=== PATIENT | female | born 2000 | race Caucasian/White ===

== ENCOUNTER 2024-10-22 15:23 | Inpatient (IN) | payer SELFPAY ==
[2024-10-22] VITALS (7 sets, daily range): BP systolic 111–133; BP diastolic 77–92; PULSE 68–106; TEMP 36.8–38.3; O2SAT 95–97; BMI 35.5; BMI 36.6
[2024-10-22 15:55] LABS: Hematocrit 41.5 % (36.0-48.0); Mean Corpuscular HGB Conc 33.7 g/dL (29.9-35.2); Mean Corpuscular Volume 89.1 fL (81.0-99.0); Mean Platelet Volume 10.1 fL (9.5-13.5); Platelet Count 297 10^3/uL (150-450); Red Blood Count 4.66 10^6/uL (4.20-5.40); Red Cell Distribution Width 12.2 % (11.0-15.0)
[2024-10-22 16:01] LABS: White Blood Count 32.5 10^3/uL (4.0-11.0)
[2024-10-22 16:06] LABS: Anion Gap 14.6; BUN Creatinine Ratio 12.7; Calcium 9.2 mg/dL (8.5-10.1); Chloride 103 mmol/L (98-107); Estimated GFR (African America >60 (>=60 mL/min/1.73m^2); Estimated GFR (Non-African Ame >60 (>=60 mL/min/1.73m^2); Glucose 106 mg/dL (74-106); Potassium 3.6 mmol/L (3.5-5.1); Sodium 138 mmol/L (136-145)
[2024-10-22 16:07] LABS: HCG Qualitative NEGATIVE (NEGATIVE); Internal Control Within Normal Limits
--- NOTE | 2024-10-22 16:07 | ED.GENADUL1 ---
HPI HPI - General Adult General Chief complaint: Skin/Abscess/Foreign Body Stated complaint: CYST LOWER EXTREMITY Time Seen by Provider: 10/22/24 15:24 Source: patient Mode of arrival: walk-in Limitations: no limitations History of Present Illness HPI narrative: 24-year-old female presents for swelling to her left upper inner thigh associated with erythema. There is been no injury or drainage. She has been feeling rundown and and somewhat nauseous. No fever vomiting or drainage. She has never had anything like this before. Related Data Home Medications ?Medication ?Instructions ?Recorded ?Confirmed sertraline 25 mg tablet (Zoloft) 25 mg PO DAILY 10/22/24 10/22/24 Allergies Allergy/AdvReac Type Severity Reaction Status Date / Time No Known Drug Allergies Allergy Verified 10/22/24 15:28 Opioid HPI Opioid Management Most Recent Opioid Data: Last Pain Scale 7 10/22/24 15:36 10/22/24 Review of Systems ROS Narrative A ten point review of systems is negative except as noted above. Exam Narrative Exam Narrative: Nurses note and vital signs reviewed and patient is not hypoxic. General: The patient appears well and in no apparent distress. Patient is resting comfortably on cart. Skin: Warm, dry, no pallor noted. There is an area of erythema and tenderness and some induration present on the left inner upper thigh. It does not go to the labia majora but starts just lateral to it. It is 16 x 17 cm in size. There is no open area or drainage. Head: Normocephalic, atraumatic Eye: Normal conjunctiva, no drainage Ears, Nose, Mouth, and Throat: oral mucosa is moist. Nares patent. Cardiovascular: Regular Rate and Rhythm Respiratory: Patient is in no distress, no accessory muscle use, lungs are clear to auscultation, no wheezing, rales or rhonchi Back: non-tender GI: Soft and nontender Musculoskeletal: The patient has no evidence of calf tenderness, no pitting edema, symmetrical pulses noted bilaterally Neurological: A&O, normal speech Psychiatric: Cooperative Constitutional Vital Signs, click to edit/add: Last Vital Signs Temp 99.0 F 10/22/24 15:29 Pulse 104 H 10/22/24 15:29 Resp 18 10/22/24 15:29 BP 133/92 H 10/22/24 15:29 Pulse Ox 96 10/22/24 15:29 O2 Del Method Room Air 10/22/24 15:29 Course Vital Signs Vital signs: Vital Signs Temperature 99.0 F 10/22/24 15:29 Pulse Rate 104 H 10/22/24 15:29 Respiratory Rate 18 10/22/24 15:29 Blood Pressure 133/92 H 10/22/24 15:29 Pulse Oximetry 96 10/22/24 15:29 Oxygen Delivery Method Room Air 10/22/24 15:29 Temperature 99.0 F 10/22/24 15:29 Pulse Rate 104 H 10/22/24 15:29 Respiratory Rate 18 10/22/24 15:29 Blood Pressure 133/92 H 10/22/24 15:29 Pulse Oximetry 96 10/22/24 15:29 Oxygen Delivery Method Room Air 10/22/24 15:29 Medical Decision Making MDM Narrative Medical decision making narrative: The patient has cellulitis without an abscess on CAT scan and her WBC is significantly elevated. She is being admitted for IV antibiotic, vancomycin was started. Treatment diagnosis and disposition were discussed with the patient. Differential Diagnosis Differential Diagnosis: Cellulitis, abscess Lab Data Lab results reviewed: Yes I reviewed the patient's lab results Labs: Lab Results 10/22/24 Range/Units 15:43 WBC 32.5 H* (4.0-11.0) 10^3/uL RBC 4.66 (4.20-5.40) 10^6/uL Hgb 14.0 (12.0-16.0) g/dL Hct 41.5 (36.0-48.0) % MCV 89.1 (81.0-99.0) fL MCH 30.0 (26.7-34.0) pg MCHC 33.7 (29.9-35.2) g/dL RDW 12.2 (11.0-15.0) % Plt Count 297 (150-450) 10^3/uL MPV 10.1 (9.5-13.5) fL Seg Neuts % (Manual) 79.0 H (43.0-75.0) Band Neutrophils % 2.0 (0-5) % Lymphocytes % (Manual) 7.0 L (20.5-60.0) % Monocytes % (Manual) 12.0 (1.7-12.0) % Eosinophils % (Manual) 0.0 L (0.9-7.0) % Basophils % (Manual) 0.0 L (0.2-2.0) % Neutrophils # (Manual) 25.67 H (1.4-6.5) 10^3/uL Band Neutrophils # 0.7 H (0.0-0.3) 10^3/uL Lymphocytes # (Manual) 2.27 (1.20-3.80) 10^3/uL Monocytes # (Manual) 3.90 H (0.30-0.80) 10^3/uL Eosinophils # (Manual) 0.00 (0.00-0.70) 10^3/uL Basophils # (Manual) 0.00 (0.00-0.10) 10^3/uL Sodium 138 (136-145) mmol/L Potassium 3.6 (3.5-5.1) mmol/L Chloride 103 (98-107) mmol/L Carbon Dioxide 24.0 (21.0-32.0) mmol/L Anion Gap 14.6 BUN 10.0 (7.0-18.0) mg/dL Creatinine 0.79 (0.55-1.02) mg/dL Est GFR ( Amer) >60 (>=60 mL/min/1.73m^2) Est GFR (Non-Af Amer) >60 (>=60 mL/min/1.73m^2) BUN/Creatinine Ratio 12.7 Glucose 106 (74-106) mg/dL Calcium 9.2 (8.5-10.1) mg/dL Serum HCG, Qual Negative (NEGATIVE) Imaging Data CT scan - abdomen: Radiologist's impression: ITS Impressions Pelvis CT 10/22/24 16:20 IMPRESSION: Subcutaneous fat stranding is seen about the medial aspect of the left upper thigh region, suggestive of local infectious/inflammatory process. No discrete abnormal fluid collection is seen. Prominent low density is seen in the endometrium which may be related to patient's menstrual cycle. Please correlate clinically. 2 cm low density seen in the left pelvic region, which represent left ovarian cyst. Small free fluid is seen in the posterior cul-de-sac, which may be physiologic. Electronically authenticated by: GEOVANY NAJERA Date: 10/22/2024 17:12 Discharge Plan Discharge Chief Complaint: Skin/Abscess/Foreign Body Clinical Impression: Cellulitis Patient Disposition: Admitted As Inpatient Time of Disposition Decision: 17:29 Condition: Good Prescriptions / Home Meds: No Action sertraline [Zoloft] 25 mg tablet 25 mg PO DAILY Print Language: Faroese Referrals: Physician,Non-Staff, MD [Primary Care Provider] - 1 week
[2024-10-22 16:16] LABS: Band Neutrophils Absolute 0.7 10^3/uL (0.0-0.3); Lymphocytes Absolute Manual 2.27 10^3/uL (1.20-3.80); Segmented Neut Absolute Manual 25.67 10^3/uL (1.4-6.5)
--- NOTE | 2024-10-22 16:20 | CT_ITS ---
The [address] [address] Patient Name: JOSE ANTONIO DANIELLE MRN: [id number] date: 2000 Sex: F Assigned Patient Location: ER Current Patient Location: ED.MAIN Accession/Order Number: [id number] Exam Date: 10/22/2024 16:11 Report Date: 10/22/2024 17:12 At the request of: KETAON RODRIGUEZ Procedure: CT pelvis w con EXAM: CT pelvis w con HISTORY: R/o abscess, erythema on the upper inner thigh COMPARISON: None. TECHNIQUE: Multiple axial images of the pelvis are obtained following IV contrast administration. FINDINGS: Subcutaneous fat stranding is seen about the medial aspect of the left upper thigh region, suggestive of local infectious/inflammatory process. No discrete abnormal fluid collection is seen. The urinary bladder appears unremarkable. Prominent low density is seen in the endometrium which may be related to patient's menstrual cycle. Please correlate clinically. 2 cm low density seen in the left pelvic region, which represent left ovarian cyst. Small free fluid is seen in the posterior cul-de-sac, which may be physiologic. The osseous structures appear unremarkable. No acute fracture or malalignment of the osseous structures is seen. CT/CT pelvis w con IMPRESSION: Subcutaneous fat stranding is seen about the medial aspect of the left upper thigh region, suggestive of local infectious/inflammatory process. No discrete abnormal fluid collection is seen. Prominent low density is seen in the endometrium which may be related to patient's menstrual cycle. Please correlate clinically. 2 cm low density seen in the left pelvic region, which represent left ovarian cyst. Small free fluid is seen in the posterior cul-de-sac, which may be physiologic. Electronically authenticated by: GEOVANY NAJERA Date: 10/22/2024 17:12
[2024-10-22] MEDS: VANCOMYCIN HCL 2,000 MG in 0.9 % SODIUM CHLORIDE 500 ML 250 MG IV (17:03)
--- NOTE | 2024-10-22 17:50 | P.HP_ITS ---
HPI H&P: HPI History of Present Illness Chief complaint: CYST LOWER EXTREMITY Narrative: Patient presented to the hospital with at least a 2-day history of left inner thigh erythema, pain is been spreading after starting off with a smaller area. In the ER found to have significant cellulitis, CT scan not consistent with abscess After discussion with the patient, she has a history of sepsis requiring long stay hospitalization secondary to pyelonephritis. Currently she is having carito sea vomiting headache chills. Opioid HPI Opioid Management Most Recent Pain and Opioid Data: Last Pain Scale 7 10/22/24 15:36 10/22/24 Review of Systems ROS Status of ROS 10 or more systems reviewed and unremark able except as noted in history and below Meds Home Medications and Allergies Home Medications ?Medication ?Instructions ?Recorded ?Confirmed ?Type sertraline 25 mg tablet (Zoloft) 25 mg PO DAILY 10/22/24 10/22/24 History Allergies Allergy/AdvReac Type Severity Reaction Status Date / Time No Known Drug Allergies Allergy Verified 10/22/24 15:28 Exam Constitutional Vital Signs, click to edit/add: Last Vital Signs Temp 99.0 F 10/22/24 15:29 Pulse 104 H 10/22/24 15:29 Resp 18 10/22/24 15:29 BP 133/92 H 10/22/24 15:29 Pulse Ox 96 10/22/24 15:29 O2 Del Method Room Air 10/22/24 15:29 Documenting provider has reviewed patient's vital signs: yes Common normals: no apparent distress Chest Common normals: inspection of chest normal Respiratory Common normals: normal respiratory effort and no retractions Cardio Common normals: regular rate, regular rhythm and no murmurs GI Common normals: Normal to inspection, nondistended, normoactive bowel sounds present (Obese), soft to palpation and non-tender Extremity Common normals: abnormal to inspection (Left inner thigh with a large area of erythema with induration, calor dolor) Results Labs Labs: Short CBC 10/22/24 Range/Units 15:43 WBC 32.5 H* (4.0-11.0) 10^3/uL Hgb 14.0 (12.0-16.0) g/dL Hct 41.5 (36.0-48.0) % Plt Count 297 (150-450) 10^3/uL BMP 10/22/24 15:43 Sodium 138 Potassium 3.6 Chloride 103 Carbon Dioxide 24.0 BUN 10.0 Creatinine 0.79 Glucose 106 Calcium 9.2 Assessment and Plan Assessment and Plan (1) Cellulitis: Plan Admission findings: Tachycardia, leukocytosis, nausea, vomiting, chills, headache all consistent with possible sepsis, lactate is pending, sepsis due to cellulitis left inner thigh. Patient has a history of sepsis in the past. Cellulitis with possible sepsis-IV antibiotics, Toradol for pain control, marked the area to ensure no spread outside the line of demarcation Depression-continue with home medications Mild dehydration secondary to the above-IV fluids Admission status: Patient with tachycardia and significant leukocytosis with likely sepsis, not all labs are back, history of sepsis in the past, medically necessary treatment will span 2 midnights. Inpatient status.
[2024-10-22 18:04] LABS: C Reactive Protein 14.39 mg/dL (<=0.50)
[2024-10-22 18:11] LABS: Lactate/Lactic Acid 1.3 mmol/L (0.4-2.0)
[2024-10-22] MEDS: ACETAMINOPHEN 500 MG TABLET 1000 MG PO (18:31)
--- NOTE | 2024-10-22 18:31 | PHOTOS ---
left upper inner thigh left inner thigh
[2024-10-22] MEDS: PIPERACILLIN SODIUM/TAZOBACTAM 3.375 GM in 0.9 % SODIUM CHLORIDE 50 ML IV (19:27)
[2024-10-22] MEDS: LACTATED RINGER'S SOLUTION 1,000 ML 100 ML IV (19:27)
[2024-10-22] MEDS: KETOROLAC TROMETHAMINE 30 MG/ML VIAL IVP (19:39)
[2024-10-23] VITALS (20 sets, daily range): BP systolic 108–141; BP diastolic 71–90; PULSE 73–105; TEMP 36.8–37.7; O2SAT 96–98
[2024-10-23] MEDS: ACETAMINOPHEN 500 MG TABLET 1000 MG PO ×2 (02:44→18:54)
[2024-10-23] MEDS: PIPERACILLIN SODIUM/TAZOBACTAM 3.375 GM in 0.9 % SODIUM CHLORIDE 50 ML IV ×3 (04:31→21:32)
[2024-10-23] MEDS: LACTATED RINGER'S SOLUTION 1,000 ML 100 ML IV ×2 (04:40→21:32)
[2024-10-23 08:13] LABS: Basophils Absolute Auto 0.1 10^3/uL (0.0-0.1); Basophils Percent Auto 0.2 % (0.2-2.0); Eosinophils Absolute Auto 0.2 10^3/uL (0.0-0.7); Eosinophils Percent Auto 0.9 % (0.9-7.0); Hematocrit 37.4 % (36.0-48.0); Hemoglobin 12.6 g/dL (12.0-16.0); Immature Granulocytes Abs Auto 0.12 10^3/uL (0.00-0.03); Immature Granulocytes Pct Auto 0.6 % (0.0-0.5); Lymphocytes Absolute Auto 2.1 10^3/uL (1.2-3.8); Mean Corpuscular HGB Conc 33.7 g/dL (29.9-35.2); Mean Corpuscular Hemoglobin 30.4 pg (26.7-34.0); Mean Corpuscular Volume 90.1 fL (81.0-99.0); Mean Platelet Volume 10.5 fL (9.5-13.5); Monocytes Absolute Auto 1.7 10^3/uL (0.3-0.8); Neutrophils Absolute Auto 16.9 10^3/uL (1.4-6.5); Neutrophils Percent Auto 80.3 % (43.0-75.0); Platelet Count 248 10^3/uL (150-450); Red Blood Count 4.15 10^6/uL (4.20-5.40); Red Cell Distribution Width 12.2 % (11.0-15.0); White Blood Count 21.1 10^3/uL (4.0-11.0)
[2024-10-23 08:31] LABS: Alanine Aminotransferase 12 U/L (14-59); Albumin Globulin Ratio 0.9; Albumin Level 3.1 g/dL (3.4-5.0); Alkaline Phosphatase 63 U/L (46-116); Aspartate Amino Transferase 11 U/L (15-37); Bilirubin Direct 0.3 mg/dL (0.0-0.2); Bilirubin Total 1.3 mg/dL (0.2-1.0); Globulin 3.5 g/dL; Total Protein 6.6 g/dL (6.4-8.2)
[2024-10-23] MEDS: SERTRALINE HCL 50 MG TABLET 25 MG PO (08:34)
[2024-10-23 08:38] LABS: Anion Gap 14.5; BUN Creatinine Ratio 11.7; C Reactive Protein 23.57 mg/dL (<=0.50); Calcium 8.6 mg/dL (8.5-10.1); Carbon Dioxide 24.1 mmol/L (21.0-32.0); Chloride 106 mmol/L (98-107); Estimated GFR (African America >60 (>=60 mL/min/1.73m^2); Estimated GFR (Non-African Ame >60 (>=60 mL/min/1.73m^2); Glucose 104 mg/dL (74-106); Potassium 3.6 mmol/L (3.5-5.1); Sodium 141 mmol/L (136-145)
[2024-10-23] MEDS: ONDANSETRON PF 4 MG/2 ML VIAL IV (09:44)
[2024-10-23] MEDS: VANCOMYCIN HCL 1,750 MG in 0.9 % SODIUM CHLORIDE 500 ML 250 MG IV ×2 (10:24→23:59)
--- NOTE | 2024-10-23 10:59 | P.PN_ITS ---
Progress Note: Subjective Subjective Interval history: Patient states leg feels about the same, not improved significantly. Exam Constitutional Vital Signs, click to edit/add: Last Vital Signs Temp 98.8 F 10/23/24 08:00 Pulse 87 10/23/24 09:54 Resp 18 10/23/24 08:00 BP 128/74 10/23/24 08:00 Pulse Ox 98 10/23/24 08:00 O2 Del Method Room Air 10/23/24 08:00 Documenting provider has reviewed patient's vital signs: yes Common normals: no apparent distress Chest Common normals: inspection of chest normal Respiratory Common normals: normal respiratory effort and no retractions Cardio Common normals: regular rate, regular rhythm and no murmurs GI Common normals: Normal to inspection, nondistended, normoactive bowel sounds present (Obese), soft to palpation and non-tender Extremity Common normals: abnormal to inspection (A couple areas where the erythema spread outside the line of demarcation,) General: abnormal exam (new line Of demarcation added, erythema appears less) Progress Note: Objective Labs Labs: Short CBC 10/22/24 10/23/24 Range/Units 15:43 07:52 WBC 32.5 H* 21.1 H (4.0-11.0) 10^3/uL Hgb 14.0 12.6 (12.0-16.0) g/dL Hct 41.5 37.4 (36.0-48.0) % Plt Count 297 248 (150-450) 10^3/uL BMP 10/22/24 10/23/24 15:43 07:52 Sodium 138 141 Potassium 3.6 3.6 Chloride 103 106 Carbon Dioxide 24.0 24.1 BUN 10.0 9.0 Creatinine 0.79 0.77 Glucose 106 104 Calcium 9.2 8.6 Liver Function 10/23/24 Range/Units 07:52 Total Bilirubin 1.3 H (0.2-1.0) mg/dL Direct Bilirubin 0.3 H (0.0-0.2) mg/dL AST 11 L (15-37) U/L ALT 12 L (14-59) U/L Alkaline Phosphatase 63 (46-116) U/L Albumin 3.1 L (3.4-5.0) g/dL Progress Note: A&P Assessment and Plan (1) Cellulitis: Plan Admission findings: Tachycardia, fever, leukocytosis, nausea, vomiting, chills, headache all consistent with possible sepsis, lactate is pending, sepsis due to cellulitis left inner thigh. Patient has a history of sepsis in the past. Cellulitis with possible sepsis-still nauseated today, significant elevation in CRP persisting, white blood cell count is better, erythema is better although it has spread outside the line of demarcation in 2 spots, with improvement in white blood cell count, no fevers at this point. Would not be uncommon for this fever to spike up again later on tonight, maintain current treatment plan. No area of fluctuance consistent with an abscess Depression-continue with home medications Mild dehydration secondary to the above-IV fluids Admission status: Patient with tachycardia and significant leukocytosis with likely sepsis, not all labs are back, history of sepsis in the past, medically necessary treatment will span 2 midnights. Inpatient status. ?
[2024-10-23] MEDS: KETOROLAC TROMETHAMINE 30 MG/ML VIAL IVP (11:38)
[2024-10-24] VITALS (13 sets, daily range): BP systolic 110–134; BP diastolic 72–87; PULSE 73–95; TEMP 36.4–37.5; O2SAT 97–98
[2024-10-24] MEDS: TEMAZEPAM 15 MG CAPSULE PO ×2 (00:08→22:10)
[2024-10-24] MEDS: ONDANSETRON PF 4 MG/2 ML VIAL IV ×3 (03:52→12:59)
[2024-10-24] MEDS: PIPERACILLIN SODIUM/TAZOBACTAM 3.375 GM in 0.9 % SODIUM CHLORIDE 50 ML IV (04:43)
[2024-10-24 06:26] LABS: Basophils Percent Auto 0.2 % (0.2-2.0); Eosinophils Absolute Auto 0.1 10^3/uL (0.0-0.7); Eosinophils Percent Auto 0.6 % (0.9-7.0); Hematocrit 35.7 % (36.0-48.0); Hemoglobin 11.8 g/dL (12.0-16.0); Immature Granulocytes Abs Auto 0.11 10^3/uL (0.00-0.03); Immature Granulocytes Pct Auto 0.6 % (0.0-0.5); Lymphocytes Percent Auto 5.2 % (20.5-60.0); Mean Corpuscular HGB Conc 33.1 g/dL (29.9-35.2); Mean Corpuscular Hemoglobin 29.8 pg (26.7-34.0); Mean Corpuscular Volume 90.2 fL (81.0-99.0); Mean Platelet Volume 10.4 fL (9.5-13.5); Monocytes Absolute Auto 1.2 10^3/uL (0.3-0.8); Monocytes Percent Auto 6.1 % (1.7-12.0); Neutrophils Absolute Auto 16.6 10^3/uL (1.4-6.5); Neutrophils Percent Auto 87.3 % (43.0-75.0); Platelet Count 236 10^3/uL (150-450); Red Blood Count 3.96 10^6/uL (4.20-5.40); Red Cell Distribution Width 12.2 % (11.0-15.0); White Blood Count 19.1 10^3/uL (4.0-11.0)
[2024-10-24 06:36] LABS: Anion Gap 15.3; BUN Creatinine Ratio 7.6; C Reactive Protein 18.51 mg/dL (<=0.50); Calcium 8.4 mg/dL (8.5-10.1); Carbon Dioxide 23.8 mmol/L (21.0-32.0); Chloride 106 mmol/L (98-107); Estimated GFR (African America >60 (>=60 mL/min/1.73m^2); Estimated GFR (Non-African Ame >60 (>=60 mL/min/1.73m^2); Glucose 155 mg/dL (74-106); Potassium 3.1 mmol/L (3.5-5.1); Sodium 142 mmol/L (136-145)
[2024-10-24] MEDS: SERTRALINE HCL 50 MG TABLET 25 MG PO (08:29)
[2024-10-24] MEDS: POTASSIUM CHLORIDE 10 MEQ ER TABLET PO ×2 (08:30→22:10)
[2024-10-24] MEDS: ACETAMINOPHEN 500 MG TABLET 1000 MG PO (08:30)
--- NOTE | 2024-10-24 09:53 | P.PN_ITS ---
Progress Note: Subjective Subjective Interval history: To her the leg still feels the same Exam Constitutional Vital Signs, click to edit/add: Last Vital Signs Temp 98.2 F 10/24/24 09:14 Pulse 73 10/24/24 09:50 Resp 16 10/24/24 08:04 BP 118/78 10/24/24 08:04 Pulse Ox 98 10/24/24 08:04 O2 Del Method Room Air 10/24/24 08:04 Documenting provider has reviewed patient's vital signs: yes Common normals: no apparent distress Chest Common normals: inspection of chest normal Respiratory Common normals: normal respiratory effort and no retractions Cardio Common normals: regular rate, regular rhythm and no murmurs GI Common normals: Normal to inspection, nondistended, normoactive bowel sounds present (Obese), soft to palpation and non-tender Extremity Common normals: abnormal to inspection (Again spread in a couple areas outside the line of demarcation) General: abnormal exam (new line Of demarcation added, erythema appears less) Progress Note: Objective Labs Labs: Short CBC 10/24/24 Range/Units 06:15 WBC 19.1 H (4.0-11.0) 10^3/uL Hgb 11.8 L (12.0-16.0) g/dL Hct 35.7 L (36.0-48.0) % Plt Count 236 (150-450) 10^3/uL BMP 10/24/24 06:15 Sodium 142 Potassium 3.1 L Chloride 106 Carbon Dioxide 23.8 BUN 8.0 Creatinine 1.05 H Glucose 155 H Calcium 8.4 L Progress Note: A&P Assessment and Plan (1) Cellulitis: Plan Admission findings: Tachycardia, fever, leukocytosis, nausea, vomiting, chills, headache all consistent with possible sepsis, lactate is pending, sepsis due to cellulitis left inner thigh. Patient has a history of sepsis in the past. Cellulitis with possible sepsis-nausea persisting, white blood cell count only slightly improved, CRP is improved but erythema is not, will adjust IV antibiotics today Depression-continue with home medications Mild dehydration secondary to the above-IV fluids Admission status: Patient with tachycardia and significant leukocytosis with likely sepsis, not all labs are back, history of sepsis in the past, medically necessary treatment will span 2 midnights. Inpatient status. ?
--- NOTE | 2024-10-24 10:05 | CM.NOTE ---
Rounds made with Dr. Saenz, discussed with pt about infection and plan of care. Pt voices concern of losing leg, Dr. Saenz reinforced to pt this is not a concern. Pt voices relief. No discharge today, will continue IV medications.
[2024-10-24] MEDS: LACTATED RINGER'S SOLUTION 1,000 ML 100 ML IV ×2 (10:43→22:12)
[2024-10-24] MEDS: CLINDAMYCIN PHOSPHATE/D5W 600 MG/50 ML PREMIX 100 MG IV ×2 (10:44→16:41)
[2024-10-24] MEDS: LEVOFLOXACIN IN DEXTROSE 5 % 750 MG/150 ML PREMIX 100 MG IV (11:26)
[2024-10-24] MEDS: HYOSCYAMINE SULFATE 0.125 MG TAB.SUBL SL (13:00)
--- NOTE | 2024-10-24 13:41 | XR_ITS ---
The [address] [address] Patient Name: JOSE ANTONIO DANIELLE MRN: [id number] date: 2000 Sex: F Assigned Patient Location: [place] Current Patient Location: [place] Accession/Order Number: [id number] Exam Date: 10/24/2024 14:04 Report Date: 10/24/2024 15:12 At the request of: JULEE SELBY Procedure: XR acute abdomen series EXAM: XR acute abdomen series HISTORY: nausea COMPARISON: None. TECHNIQUE: Single frontal view of the chest as well as supine and upright views of the abdomen FINDINGS: There is a normal. No dense focal consolidation, pneumothorax or pleural effusion is seen. Nonspecific bowel gas pattern is seen. No air-filled distended loops of bowel is seen to suggest bowel obstruction. Moderate to large volume of stool is seen in the colon. No gross pneumoperitoneum is seen. No obvious pathologic calcification is seen. The visualized osseous structures appear unremarkable. XR/XR acute abdomen series IMPRESSION: No acute abnormality. Electronically authenticated by: GEOVANY NAJERA Date: 10/24/2024 15:12
[2024-10-24] MEDS: PROMETHAZINE HCL 25 MG in 0.9 % SODIUM CHLORIDE 50 ML 204 MG IV (14:25)
[2024-10-24] MEDS: PROMETHAZINE HCL 25 MG in 0.9 % SODIUM CHLORIDE 50 ML 150 MG IV (22:10)
[2024-10-25] MEDS: CLINDAMYCIN PHOSPHATE/D5W 600 MG/50 ML PREMIX 100 MG IV ×2 (01:01→10:56)
[2024-10-25 04:00] VITALS: BP 112/74; PULSE 99; TEMP 37.1; O2SAT 97
[2024-10-25] MEDS: CLINDAMYCIN PHOSPHATE/D5W 600 MG/50 ML PREMIX 50 MG IV (05:12)
[2024-10-25 05:37] VITALS: O2SAT 97
[2024-10-25 07:18] LABS: Basophils Percent Auto 0.2 % (0.2-2.0); Eosinophils Absolute Auto 0.2 10^3/uL (0.0-0.7); Eosinophils Percent Auto 1.2 % (0.9-7.0); Hematocrit 32.8 % (36.0-48.0); Hemoglobin 11.1 g/dL (12.0-16.0); Immature Granulocytes Abs Auto 0.12 10^3/uL (0.00-0.03); Immature Granulocytes Pct Auto 0.7 % (0.0-0.5); Lymphocytes Absolute Auto 1.6 10^3/uL (1.2-3.8); Lymphocytes Percent Auto 9.3 % (20.5-60.0); Mean Corpuscular HGB Conc 33.8 g/dL (29.9-35.2); Mean Corpuscular Hemoglobin 30.4 pg (26.7-34.0); Mean Corpuscular Volume 89.9 fL (81.0-99.0); Mean Platelet Volume 10.4 fL (9.5-13.5); Monocytes Absolute Auto 1.4 10^3/uL (0.3-0.8); Monocytes Percent Auto 8.1 % (1.7-12.0); Neutrophils Percent Auto 80.5 % (43.0-75.0); Platelet Count 285 10^3/uL (150-450); Red Blood Count 3.65 10^6/uL (4.20-5.40); Red Cell Distribution Width 12.2 % (11.0-15.0); White Blood Count 17.3 10^3/uL (4.0-11.0)
[2024-10-25 07:33] LABS: Anion Gap 11.2; BUN Creatinine Ratio 5.2; C Reactive Protein 12.63 mg/dL (<=0.50); Calcium 8.4 mg/dL (8.5-10.1); Carbon Dioxide 25.9 mmol/L (21.0-32.0); Chloride 107 mmol/L (98-107); Estimated GFR (African America >60 (>=60 mL/min/1.73m^2); Estimated GFR (Non-African Ame 58 (>=60 mL/min/1.73m^2); Glucose 103 mg/dL (74-106); Potassium 3.1 mmol/L (3.5-5.1); Sodium 141 mmol/L (136-145)
[2024-10-25 08:15] VITALS: BP 124/84; PULSE 92; TEMP 37.2; O2SAT 96
[2024-10-25 09:29] VITALS: TEMP 37.2
[2024-10-25] MEDS: HYOSCYAMINE SULFATE 0.125 MG TAB.SUBL SL (09:29)
[2024-10-25] MEDS: SERTRALINE HCL 50 MG TABLET 25 MG PO (09:29)
[2024-10-25] MEDS: ACETAMINOPHEN 500 MG TABLET 1000 MG PO (09:29)
--- NOTE | 2024-10-25 10:01 | CM.NOTE ---
Rounds made with Dr. Saenz. Dr. Saenz discussed improvement in cellulits and plan is for discharge today after another dose of IV antibiotics.
--- NOTE | 2024-10-25 10:13 | P.DS_ITS ---
DS: Providers Provider Date of admission: 10/22/24 18:22 Primary care physician: Non-Staff Physician, DS: Diagnosis Discharge Diagnosis (1) Cellulitis: Assessment and plan: Admission findings: Tachycardia, fever, leukocytosis, nausea, vomiting, chills, headache all consistent with possible sepsis, lactate is pending, sepsis due to cellulitis left inner thigh. Patient has a history of sepsis in the past. Cellulitis with possible sepsis-nausea persisting, white blood cell count only slightly improved, CRP is improved but erythema is not, will adjust IV antibiotics today Depression-continue with home medications Mild dehydration secondary to the above-IV fluids Admission status: Patient with tachycardia and significant leukocytosis with likely sepsis, not all labs are back, history of sepsis in the past, medically necessary treatment will span 2 midnights. Inpatient status. ? DS: Summary Hospital Course Hospital Course: Patient seen and evaluated in the emergency room with about a 24 to 36-hour rapidly progressive cellulitis of her left inner thigh, no wound as a starting point, was initially placed on Zosyn and vancomycin, the following morning after only being on that for 12 hours it was somewhat spread outside the line of demarcation white blood cell count essentially unchanged, with the only being on the antibiotics for half a day we elected to keep the same antibiotics, the following morning however it was further progressed, patient was then changed to levofloxacin and clindamycin. With that address change clerk the last 24 hours it is much improved now back down to the initial line, plan is to have her finish out those antibiotics today and late this afternoon go home and place patient on oral Levaquin and clindamycin and follow-up with her PCP within the next week. She did have complication with tolerating the antibiotics and a lot of nausea, will send patient home with Phenergan as well mild hypokalemia that was supplemented Time Spent with Patient Time attestation: Total time spent providing and/or coordinating discharge services: Exam Constitutional Vital Signs, click to edit/add: Last Vital Signs Temp 99.0 F 10/25/24 09:29 Pulse 92 H 10/25/24 08:15 Resp 16 10/25/24 08:15 BP 124/84 10/25/24 08:15 Pulse Ox 96 10/25/24 08:15 O2 Del Method Room Air 10/25/24 08:15 Documenting provider has reviewed patient's vital signs: yes Common normals: no apparent distress Chest Common normals: inspection of chest normal Respiratory Common normals: normal respiratory effort and no retractions Cardio Common normals: regular rate, regular rhythm and no murmurs GI Common normals: Normal to inspection, nondistended, normoactive bowel sounds present (Obese), soft to palpation and non-tender Extremity Common normals: abnormal to inspection (Just inside the line of the initial marking, much improved) General: abnormal exam DS: Data Data Completed and Pending Labs on day of discharge: Labs from last 24 hours 10/25/24 07:00 WBC 17.3 H RBC 3.65 L Hgb 11.1 L Hct 32.8 L MCV 89.9 MCH 30.4 MCHC 33.8 RDW 12.2 Plt Count 285 MPV 10.4 Neut % (Auto) 80.5 H Lymph % (Auto) 9.3 L [place] % (Auto) 8.1 Eos % (Auto) 1.2 Baso % (Auto) 0.2 Neut # (Auto) 14.0 H Lymph # (Auto) 1.6 [place] # (Auto) 1.4 H Eos # (Auto) 0.2 Baso # (Auto) 0.0 Abs Immat Gran (auto) 0.12 H Imm/Tot Granulo (auto) 0.7 H Sodium 141 Potassium 3.1 L Chloride 107 Carbon Dioxide 25.9 Anion Gap 11.2 BUN 6.0 L Creatinine 1.15 H Est GFR ( Amer) >60 Est GFR (Non-Af Amer) 58 L BUN/Creatinine Ratio 5.2 Glucose 103 Calcium 8.4 L C-Reactive Protein 12.63 H Preliminary micro results at discharge 10/22/24 18:00 Blood Culture Result 2 - Preliminary Blood - Left Forearm NO GROWTH AT 36-48 HOURS. FINAL TO FOLLOW. 10/22/24 18:00 Blood Culture Result 1 - Preliminary Blood - Right Hand NO GROWTH AT 36-48 HOURS. FINAL TO FOLLOW. Discharge Plan Discharge Disposition: Home, Self-Care Condition: Good Discharge Medications: New levofloxacin 750 mg tablet 750 mg PO DAILY 14 Days Qty: 14 0RF clindamycin HCl 300 mg capsule 300 mg PO Q6H Qty: 56 0RF ibuprofen 800 mg tablet 800 mg PO Q6H PRN (Reason: pain) Qty: 100 11RF promethazine 25 mg tablet 25 mg PO Q4H PRN (Reason: nausea) Qty: 20 1RF Continued sertraline [Zoloft] 25 mg tablet 25 mg PO DAILY Activity: increase activity as tolerated Diet: advance to your usual diet Print Language: Cambodian Patient Instructions: Clindamycin (By mouth), Ibuprofen (By mouth), Promethazine (By mouth), Levofloxacin (By mouth), Cellulitis (ED), Warm Compress or Soak (DC) Forms: Portal Instructions Follow Up Appointments: Oct.29 @ 11am with Peter Norris NP [address], [address], [place] [phone] Discharge Date/Time: 10/25/24 15:06
[2024-10-25] MEDS: LACTATED RINGER'S SOLUTION 1,000 ML 100 ML IV (10:53)
[2024-10-25] MEDS: PROMETHAZINE HCL 25 MG in 0.9 % SODIUM CHLORIDE 50 ML 204 MG IV (10:55)
[2024-10-25 11:10] VITALS: O2SAT 98
--- NOTE | 2024-10-25 11:17 | SWNOTE1 ---
SW received email from Sabrina in [facility] and she will be seeing pt today since she is a self pay.
[2024-10-25 11:49] VITALS: BP 110/70; PULSE 78; TEMP 36.7; O2SAT 95
[2024-10-25] MEDS: LEVOFLOXACIN IN DEXTROSE 5 % 750 MG/150 ML PREMIX 150 MG IV (11:53)
--- NOTE | 2024-10-31 15:09 | CM.DCFOLLOWU ---
1st attempt 10/31/24, no answer
== END 2024-10-25 15:06 | disposition home or self-care (01) | DRG 872 ==
LOC: ER 17:30 → MS 18:28
PROVIDERS: Admitting Provider Family Medicine; Emergency Provider Emergency Medicine; Visit Provider Family Medicine
DX: A41.9 Sepsis, unspecified organism (principal); L03.116 Cellulitis of left lower limb; E86.0 Dehydration; F32.A Depression, unspecified; Z79.899 Other long term (current) drug therapy
CPT/HCPCS: 36415; 72193; 74022; 80048; 80076; 83605; 84703; 85007; 85025; 85027; 86140; 87040; 94761; 96365; 99285; 99406; J1885; J2405; J2543; J2550; J3370; Q9967